=== PATIENT | male | born 1970 | race Caucasian/White ===

== ENCOUNTER 2019-05-05 08:03 | Outpatient (RCR) | payer MEDICAID, SELFPAY | END 2019-05-06 00:01 | LOC: WOUND 08:03 | PROVIDERS: Visit Provider Nurse Practitioner Family | DX: L98.492 Non-pressure chronic ulcer of skin of other sites with fat layer exposed (principal); A49.02 Methicillin resistant Staphylococcus aureus infection, unspecified site | CPT/HCPCS: 99212 ==

== ENCOUNTER 2021-03-01 10:58 | Outpatient (CLI) | payer MEDICAID, SELFPAY ==
--- NOTE | 2021-03-01 11:04 | CT_ITS ---
WS: [email or web address] CT HEAD TECHNIQUE: Noncontrast CT of the head obtained from the skullbase to the vertex. CLINICAL INFORMATION: VERTIGO COMPARISON: None. DLP: 925.[address] scans at [facility] use at least one of these dose optimization techniques: automated e xposure control; mA and/or kV adjustment per patient size (includes targeted exams where dose is matc hed to clinical indication); or iterative reconstruction. FINDINGS: No evidence of intracranial hemorrhage or mass effect. Ventricular system and basal cisterns are hardy nt. Mild small vessel changes with mild parenchymal volume loss. No extra-axial fluid collections. No evidence of mass or mass effect. Normal valladares-white differentiation. Paranasal sinuses and mastoid air cells are well aerated. .Normal visualized soft tissues. CT/CT head wo con* [id number] IMPRESSION: 1. No evidence of intracranial hemorrhage or mass effect. 2. Mild small vessel changes. Mild parenchymal volume loss. 3. No acute intracranial findings.
== END 2021-03-01 10:59 | disposition home or self-care (01) ==
PROVIDERS: PCP Nurse Practitioner Family; Visit Provider Nurse Practitioner Family
DX: R42 Dizziness and giddiness (principal)
CPT/HCPCS: 70450

== ENCOUNTER 2021-11-22 08:25 | Outpatient (CLI) | payer MEDICAID, SELFPAY ==
--- NOTE | 2021-11-22 08:36 | MR_ITS ---
WS: [id number] MRI RIGHT SHOULDER HISTORY: RIGHT SHOULDER INJURY COMPARISON: Radiographs 10/17/2021 TECHNIQUE: Multiplanar sequences of the shoulder joint are submitted. Mild AC joint hypertrophy. Hypertrophic osteophytes around the distal clavicle and the adjacent acrom ion. Narrowing of the joint space with only a small amount of increased signal. Osteophyte causes mil d encroachment upon the supraspinatus muscle near the myotendinous insertion site. No significant sub acromial impingement. There is a very small amount of fluid in the subacromial and subdeltoid bursa. No os acromion. Biceps tendon is abnormal but still within the bicipital groove. There is increased f luid within the biceps tendon consistent with a split tear. Very slightly high riding humeral head. Mild narrowing of the glenohumeral joint. Increased signal wi th thickening of the distal supraspinatus tendon anteriorly. Increased signal is greatest on the prot on density sequence therefore this is more likely tendinopathy then a tear. Small amount of fluid ext ends more proximally along the supraspinatus tendon. Subscapularis tendon and infraspinatus tendons a re intact. Abnormal signal from the anterior labrum. Suspicious for an anterior labral tear and there is a small amount of adjacent edema and fluid also. MR/MR shoulder RT wo con* [id number] IMPRESSION: 1. Split tear biceps tendon without dislocation. 2. Abnormal signal in the anterior labrum suspicious for a tear with minimal r etraction of the labrum towards the glenoid neck. 3. Tendinopathy distal supraspinatus tendon without a focal tear identified. 4. Distal clavicle osteophyte encroachment upon the supraspinatus myotendinous insertion.
[2021-11-22 13:50] LABS: Erythrocyte Sedimentation Rate 3 mm/hr (0-10)
[2021-11-22 14:24] LABS: C Reactive Protein 4.4 mg/L (0.0-4.9); Creatine Phosphokinase 48 U/L (39-308); Magnesium 2.2 mg/dL (1.7-2.3); Phosphorus 3.5 mg/dL (2.5-4.5); Testosterone Total 540.5 ng/dL (193-740); Thyroid Stimulating Hormone 2.35 uIU/mL (0.27-4.20); Uric Acid 4.9 mg/dL (3.4-7.0)
--- NOTE | 2021-11-22 14:31 | XR_ITS ---
WS: [email or web address] XR sacroiliac jts m 3V [id number] REASON FOR EXAM: L40.9 - Psoriasis, unspecified FINDINGS: No fracture or focal bone lesion. The sacroiliac joints are well defined. There is no significant sclerosis. There are no erosions, bridging, or fusion. XR/XR sacroiliac jts m 3V [id number] IMPRESSION: No findings of sacroiliitis.
--- NOTE | 2021-11-22 14:31 | XR_ITS ---
WS: [email or web address] XR hand RT 2V [id number] REASON FOR EXAM: M25.50 - Pain in unspecified joint FINDINGS: No fracture or focal bone lesion. The joint spaces of the second through the fifth fingers are intact and well preserved. There are no erosions, periosteal reaction, or soft tissue abnormalities. Within the thumb there is mild joint space narrowing with subchondral sclerosis and small marginal os teophytes in the DIP and metacarpophalangeal joint. XR/XR hand RT 2V [id number] IMPRESSION: Mild osteoarthritis the right thumb.
--- NOTE | 2021-11-22 14:31 | XR_ITS ---
WS: [email or web address] XR hand LT 2V [id number] REASON FOR EXAM: M25.50 - Pain in unspecified joint FINDINGS: No fracture or focal bone lesion. The joint spaces of the second through the fifth fingers are intact and well preserved. There are no erosions, periosteal reaction, or soft tissue abnormalities. Within the thumb there is mild narrowing of the joint space and subchondral sclerosis in the DIP join t and metacarpal phalangeal joint. XR/XR hand LT 2V [id number] IMPRESSION: Mild osteoarthritis of the left thumb as above.
[2021-11-22 14:38] LABS: Hepatitis B Core AB, Total Non-Reactive (Nonreactive); Hepatitis B Surface Antigen Non-Reactive (Nonreactive); Hepatitis C Virus Antibody Non-Reactive (Nonreactive)
[2021-11-22 14:48] LABS: Calcium 9.3 mg/dL (8.5-10.5)
[2021-11-22 15:21] LABS: Ferritin 173 ng/mL (30-400)
[2021-11-22 15:22] LABS: Parathyroid Hormone 40.1 pg/mL (15-65)
[2021-11-22 15:38] LABS: 25 Hydroxy Vitamin D 33 ng/mL (30-100)
[2021-11-23 11:09] LABS: THYROID PEROXIDASE ANTIBODIES <1 IU/mL (<9)
[2021-11-23 14:23] LABS: CENTROMERE B ANTIBODY <1.0 NEG AI (<1.0 NEG); JO-1 ANTIBODY <1.0 NEG AI (<1.0 NEG); RNP ANTIBODY <1.0 NEG AI (<1.0 NEG); SCL-70 ANTIBODY <1.0 NEG AI (<1.0 NEG); SJOGREN'S ANTIBODY (SS-A) <1.0 NEG AI (<1.0 NEG); SM ANTIBODY <1.0 NEG AI (<1.0 NEG); SS-B <1.0 NEG AI (<1.0 NEG)
[2021-11-23 16:04] LABS: ANA SCREEN, IFA NEGATIVE (NEGATIVE)
[2021-11-23 16:17] LABS: Cyclic Citrullinated Peptide <16 UNITS
[2021-11-24 13:58] LABS: HLA-B27 NEGATIVE (NEGATIVE)
[2021-11-25 10:27] LABS: DNA AB (DS) CRITHIDIA,IFA NEGATIVE (NEGATIVE)
[2021-11-25 11:13] LABS: COMPLEMENT COMPONENT C3C 140 mg/dL (82-185); COMPLEMENT COMPONENT C4C 35 mg/dL (15-53)
[2021-11-25 14:44] LABS: COMPLEMENT, TOTAL (CH50) >60 U/mL (31-60)
== END 2021-11-22 08:26 | disposition home or self-care (01) ==
LOC: RAD 08:28
PROVIDERS: Internal Medicine; PCP Nurse Practitioner Family; Visit Provider Nurse Practitioner Family
DX: R70.0 Elevated erythrocyte sedimentation rate (principal); Z11.59 Encounter for screening for other viral diseases; Z86.14 Personal history of Methicillin resistant Staphylococcus aureus infection; M25.50 Pain in unspecified joint; M45.0 Ankylosing spondylitis of multiple sites in spine; L40.9 Psoriasis, unspecified
CPT/HCPCS: 36415; 72202; 73120; 73221; 82306; 82310; 82550; 82728; 83516; 83735; 83970; 84100; 84403; 84443; 84550; 85651; 86140; 86160; 86162; 86200; 86235; 86255; 86376; 86704; 86803; 86812; 87340; 99204

== ENCOUNTER → 2021-12-27 11:18 | Outpatient (BNVA) | payer MEDICAID, SELFPAY | PROVIDERS: PCP Nurse Practitioner Family; Visit Provider Internal Medicine | DX: M25.50 Pain in unspecified joint (principal); R70.0 Elevated erythrocyte sedimentation rate; R53.83 Other fatigue; R51.9 Headache, unspecified; Z98.890 Other specified postprocedural states | CPT/HCPCS: 99214 ==

== ENCOUNTER 2022-03-06 09:55 | Outpatient (CLI) | payer OTHER, SELFPAY ==
--- NOTE | 2022-03-06 | XR_ITS ---
WS: [email or web address] RIGHT KNEE: 2 VIEW(S) TECHNIQUE: AP and lateral. HISTORY: Disability Determination, pain in right knee COMPARISON: None available. No fracture or dislocation. No joint space narrowing or osteophytes. No joint effusion. No soft tissue abnormality. XR/XR knee RT 1-2V [id number] IMPRESSION: Normal RIGHT knee.
== END 2022-03-06 09:56 | disposition home or self-care (01) ==
LOC: RAD 09:56
PROVIDERS: PCP Nurse Practitioner Family; Visit Provider Dermatology
DX: Z02.71 Encounter for disability determination (principal); M25.561 Pain in right knee
CPT/HCPCS: 73560

== ENCOUNTER → 2022-07-31 14:11 | Outpatient (BNVA) | payer MEDICAID, SELFPAY | PROVIDERS: PCP Nurse Practitioner Family; Visit Provider Internal Medicine | DX: M25.50 Pain in unspecified joint (principal); R70.0 Elevated erythrocyte sedimentation rate; R53.83 Other fatigue; R76.8 Other specified abnormal immunological findings in serum; M54.2 Cervicalgia | CPT/HCPCS: 99214 ==

== ENCOUNTER 2022-09-28 13:39 | Outpatient (CLI) | payer MEDICAID, SELFPAY ==
--- NOTE | 2022-09-28 14:07 | XR_ITS ---
WS: [email or web address] Cervical spine, 3 views, 09/28/2022 Clinical Data: M25.50 - Pain in unspecified joint Comparison: None. Findings: No compression fractures are seen. The disc heights are normal. There is no prevertebral so ft tissue swelling. The odontoid is unremarkable. The soft tissues of the neck and the lung apices ar e normal. XR/XR cervical spine 3V* [id number] Impression: Negative cervical spine.
== END 2022-09-28 13:40 | disposition home or self-care (01) ==
LOC: RAD 13:41
PROVIDERS: PCP Nurse Practitioner Family; Visit Provider Internal Medicine
DX: M25.50 Pain in unspecified joint (principal); M54.2 Cervicalgia
CPT/HCPCS: 72040

== ENCOUNTER → 2022-11-16 09:36 | Outpatient (BNVA) | payer MEDICAID, SELFPAY | PROVIDERS: PCP Nurse Practitioner Family; Visit Provider Anesthesiology Pain Medicine | DX: M19.90 Unspecified osteoarthritis, unspecified site (principal); M54.2 Cervicalgia; R51.9 Headache, unspecified; R76.8 Other specified abnormal immunological findings in serum; M25.511 Pain in right shoulder; M25.522 Pain in left elbow; M25.521 Pain in right elbow; M25.531 Pain in right wrist; M25.532 Pain in left wrist; M79.601 Pain in right arm; M79.641 Pain in right hand; M79.642 Pain in left hand | CPT/HCPCS: 99204 ==

== ENCOUNTER 2023-01-19 15:14 | Outpatient (CLI) | payer MEDICAID, SELFPAY ==
--- NOTE | 2023-01-19 15:20 | XR_ITS ---
WS: [email or web address] Exam: XR elbow RT 2V [id number] Date/Time of Exam: 01/19/2023 3:21 PM Reason For Exam: M19.90 - Unspecified osteoarthritis, unspecified site No fracture or dislocation. No joint effusion. Early degenerative change of the radiocapitellar joint . Normal soft tissues. IMPRESSION: 1. Early degenerative change of the radial capitellar joint. The elbow is otherwise normal.
--- NOTE | 2023-01-19 15:20 | XR_ITS ---
WS: [email or web address] Exam: XR elbow LT 2V [id number] Date/Time of Exam: 01/19/2023 3:21 PM Reason For Exam: M19.90 - Unspecified osteoarthritis, unspecified site Findings: There are no fractures, soft tissue swelling, or calcifications. The elbow shows normal bony alignme nt. There is no irregularity of the bony architecture. IMPRESSION: Negative LEFT elbow.
== END 2023-01-19 15:15 | disposition home or self-care (01) ==
LOC: RAD 15:16
PROVIDERS: PCP Nurse Practitioner Family; Visit Provider Anesthesiology Pain Medicine
DX: M19.021 Primary osteoarthritis, right elbow (principal); M25.522 Pain in left elbow
CPT/HCPCS: 73070

== ENCOUNTER 2023-03-22 11:29 | Outpatient (CLI) | payer OTHER, SELFPAY ==
--- NOTE | 2023-03-22 11:41 | XR_ITS ---
WS: [email or web address] Exam: XR lumbar spine 2-3V* [id number] Date/Time of Exam: 03/22/2023 11:51 AM Reason For Exam: Disability check No fracture or dislocation. Mild spondylosis of L3, L4 and L5. Posterior elements are intact. Disc sp aces are preserved. 4 mm calcification superimposes the lower pole of the RIGHT kidney and might repr esent a renal calculus. IMPRESSION: 1. Mild spondylosis otherwise negative lumbar spine study.
== END 2023-03-22 11:30 | disposition home or self-care (01) ==
LOC: RAD 11:31
PROVIDERS: PCP Nurse Practitioner Family; Visit Provider Dermatology
DX: Z02.71 Encounter for disability determination (principal); M47.816 Spondylosis without myelopathy or radiculopathy, lumbar region
CPT/HCPCS: 72100

== ENCOUNTER → 2023-12-05 07:54 | Outpatient (BNVA) | payer MEDICAID, OTHER, SELFPAY | PROVIDERS: PCP Nurse Practitioner Family; Visit Provider Nurse Practitioner Family | DX: L57.0 Actinic keratosis (principal); S40.912A Unspecified superficial injury of left shoulder, initial encounter; X58.XXXA Exposure to other specified factors, initial encounter; L81.4 Other melanin hyperpigmentation; D22.5 Melanocytic nevi of trunk; L82.1 Other seborrheic keratosis; L57.8 Other skin changes due to chronic exposure to nonionizing radiation | CPT/HCPCS: 17000; 99203 ==

== ENCOUNTER → 2024-11-26 13:49 | Outpatient (BNVA) | payer MEDICAID, SELFPAY | PROVIDERS: PCP Nurse Practitioner Family; Visit Provider Student in an Organized Health Care Education/Training Program | DX: M25.511 Pain in right shoulder (principal); M25.512 Pain in left shoulder; M19.011 Primary osteoarthritis, right shoulder; M75.42 Impingement syndrome of left shoulder | CPT/HCPCS: 73030; 99204 ==